=== PATIENT | male | born 1990 | race Hispanic/Latino ===

== ENCOUNTER 2024-04-07 13:27 | Emergency (ER) | payer OTHER ==
[2024-04-07] MEDS ORDERED: ACETAMINOPHEN 500 MG TAB ONE (13:47)
[2024-04-07] MEDS ORDERED: KETOROLAC 30 MG/ML INJ ONE (13:47)
--- NOTE | 2024-04-07 13:52 | RAD REPORT ---
EXAM DESCRIPTION: RAD - Hand Right 3 View - 04/07/2024 1:43 pm CLINICAL HISTORY: thumb injury COMPARISON: <Comparisons> FINDINGS: Mildly comminuted fracture is present involving the base of the first metatarsal with mild displacement. Moderate soft tissue swelling is evident. No dislocation. Small ossific density fifth finger PIP joint likely chronic
--- NOTE | 2024-04-07 14:57 | EDPHYS ---
Physician Documentation [facility] Name: Isaiah Pemberton Age: 33 yrs Sex: Male : 1990 Arrival Date: 04/07/2024 Time: 13:27 Bed 9 Private MD: ED Physician José Luis Sanches HPI: 04/07 13:30 This 33 yrs old Male presents to ER via Unassigned with complaints of Hand Injury. ec2 13:30 Patient arrives today for evaluation of hand injury. States that he fell and injured ec2 his right hand. Complaining of thumb pain. Significant swelling.. Historical: - Allergies: 13:31 No Known Allergies; hb - Home Meds: 13:31 None [Active]; hb - PMHx: 13:31 None; hb - PSHx: 13:31 None; hb - Immunization history:: Adult Immunizations up to date. - Infectious Disease History:: Denies. - Social history:: Smoking status: Patient denies any tobacco usage or history of. ROS: 13:30 Constitutional: as per hpi ec2 Exam: 13:30 Constitutional: GEN: NAD Head: atraumatic Eyes: EOMI Ears: External ears are ec2 normal. CV: regular rate LUNGS: no respiratory distress ABD: non-distended SKIN: no evidence of rashes MSK: Right hand or thumb with significant swelling and overlying ecchymosis. Vital Signs: 13:28 BP 124 / 74; Pulse 88; Resp 16; Temp 98.3; Pulse Ox 100% ; Weight 83.91 kg; Height 5 hb ft. 9 in. ; Pain 10/10; 13:45 BP 129 / 88; Pulse 88; Resp 19; Temp 98.1; Pulse Ox 99% on R/A; Weight 78.93 kg; Height ar6 5 ft. 8 in. ; 15:06 BP 132 / 88; Pulse 18; Resp 77; Pulse Ox 100% on R/A; ar6 15:20 BP 129 / 86; Pulse 82; Resp 19; Pulse Ox 100% on R/A; ar6 13:45 Body Mass Index 26.46 (78.93 kg, 172.72 cm) ar6 13:28 Pain Scale: Adult hb MDM: 13:28 Patient medically screened. ec2 13:30 Data reviewed: vital signs. ED course: Patient arrives today for evaluation of a right ec2 hand injury. Examination remarkable for hand findings as above. Will obtain radiograph. Differential includes dislocation, fracture, contusion. Will give the patient Toradol, Tylenol as well as an ice pack.. 14:13 ED course: Hand x-ray independently reviewed and interpreted by me, shows metatarsal ec2 fracture. Will place patient in splint. Will discharge and have the patient follow-up outpatient expectantly. . 04/07 13:29 Order name: Hand Right 3 View XRAY; Complete Time: 14:12 ec2 04/07 13:29 Order name: Ice pack; Complete Time: 14:00 ec2 Administered Medications: 13:45 Drug: Ketorolac IM 30 mg IM once Route: IM; Site: right deltoid; ar6 14:29 Follow up: Response: No adverse reaction ar6 13:45 Drug: Acetaminophen PO 1000 mg PO once Route: PO; ar6 14:29 Follow up: Response: No adverse reaction ar6 Disposition Summary: 04/07/24 14:57 Discharge Ordered Condition: Stable ec2 Diagnosis - Nondisplaced fracture of shaft of first metacarpal bone, right hand, initial ec2 encounter for closed fracture Followup: ec2 - With: Phu Molina MD - When: - Reason: Recheck today's complaints Discharge Instructions: - Discharge Summary Sheet ec2 - Metacarpal Fracture, [id number] ec2 Forms: - Medication Reconciliation Form ec2 - Antibiotic Education ec2 - Prescription Opioid Use ec2 - Patient Portal Instructions ec2 - Leadership Thank You Letter ec2 Signatures: Dispatcher [employer] Carol Cherry RN RN hb Corral, Edwin, MD MD ec2 Tamara Hamilton RN RN ar6
--- NOTE | 2024-04-07 14:57 | ER ---
Nurse's Notes [facility] Name: Isaiah Pemberton Age: 33 yrs Sex: Male : 1990 Arrival Date: 04/07/2024 Time: 13:27 Bed 9 Private MD: Diagnosis: Nondisplaced fracture of shaft of first metacarpal bone, right hand, initial encounter for closed fracture Presentation: 04/07 13:28 Chief complaint: Right hand pain, swelling, and redness after fall from bunk bed last hb night. Coronavirus screen: At this time, the client does not indicate any symptoms associated with coronavirus-19. Ebola Screen: No symptoms or risks identified at this time. Initial Sepsis Screen: Does the patient meet any 2 criteria? No. Patient's initial sepsis screen is negative. Does the patient have a suspected source of infection? No. Patient's initial sepsis screen is negative. Risk Assessment: Do you want to hurt yourself or someone else? Patient reports no desire to harm self or others. Onset of symptoms was April 06, 2024. 13:28 Method Of Arrival: Law Enforcement: [place] [employer] hb 13:28 Acuity: LOGAN 3 hb Triage Assessment: 13:31 General: Appears in no apparent distress. Behavior is calm, cooperative. Pain: Pain hb currently is 10 out of 10 on a pain scale. Neuro: Level of Consciousness is awake, alert, obeys commands, Oriented to person, place, time, situation. Cardiovascular: Patient's skin is warm and dry. Respiratory: Respiratory effort is even, unlabored, Respiratory pattern is regular, symmetrical. Musculoskeletal: swelling and bruising noted to right hand Reports pain in right hand. Historical: - Allergies: 13:31 No Known Allergies; hb - Home Meds: 13:31 None [Active]; hb - PMHx: 13:31 None; hb - PSHx: 13:31 None; hb - Immunization history:: Adult Immunizations up to date. - Infectious Disease History:: Denies. - Social history:: Smoking status: Patient denies any tobacco usage or history of. Screenin:45 [facility] ED Fall Risk Assessment (Adult) History of falling in the last 3 months, ar6 including since admission No falls in past 3 months (0 pts) Confusion or Disorientation No (0 pts) Intoxicated or Sedated No (0 pts) Impaired Gait No (0 pts) Mobility Assist Device Used No (0 pt) Altered Elimination No (0 pt) Score/Fall Risk Level 0 - 2 = Low Risk Oriented to surroundings, Maintained a safe environment, Educated pt \T\ family on fall prevention, incl call for assistance when getting out of bed, Hourly rounding (assess needs \T\ fall precautionary measures) done. Abuse screen: Denies threats or abuse. Denies injuries from another. Nutritional screening: No deficits noted. Tuberculosis screening: No symptoms or risk factors identified. Assessment: 13:45 General: Appears in no apparent distress. uncomfortable, Behavior is calm, cooperative, ar6 appropriate for age, guards at bedside x3. Pain: Complains of pain in right hand Pain does not radiate. Pain currently is 8 out of 10 on a pain scale. Neuro: Level of Consciousness is awake, alert, obeys commands, Oriented to person, place, time, situation. Cardiovascular: Capillary refill < 3 seconds. Respiratory: Airway is patent. GI: Abdomen is flat, non-distended. : No signs and/or symptoms were reported regarding the genitourinary system. EENT: No signs and/or symptoms were reported regarding the EENT system. Derm: Skin is intact, is healthy with good turgor, right hand swelling. Musculoskeletal: No signs and/or symptoms reported regarding the musculoskeletal system. 15:05 Reassessment: pending d/c for splint. ar6 Vital Signs: 13:28 BP 124 / 74; Pulse 88; Resp 16; Temp 98.3; Pulse Ox 100% ; Weight 83.91 kg; Height 5 hb ft. 9 in. ; Pain 10/10; 13:45 BP 129 / 88; Pulse 88; Resp 19; Temp 98.1; Pulse Ox 99% on R/A; Weight 78.93 kg; Height ar6 5 ft. 8 in. ; 15:06 BP 132 / 88; Pulse 18; Resp 77; Pulse Ox 100% on R/A; ar6 15:20 BP 129 / 86; Pulse 82; Resp 19; Pulse Ox 100% on R/A; ar6 13:45 Body Mass Index 26.46 (78.93 kg, 172.72 cm) ar6 13:28 Pain Scale: Adult hb ED Course: 13:28 Patient arrived in ED. hb 13:28 José Luis Sanches MD is Attending Physician. ec2 13:30 Triage completed. hb 13:32 Arm band placed on. hb 13:45 Hand Right 3 View XRAY In Process Unspecified. EDMS 13:45 No apparent distress. Awaiting for x-ray. ar6 13:45 Patient has correct armband on for positive identification. Bed in low position. Call ar6 light in reach. Side rails up X 1. Provided Education on: medications. Pulse ox on. NIBP on. Noise minimized. Visitors limited. Warm blanket given. Head of bed. 13:59 Tamara Hamilton, RN is Primary Nurse. ar6 14:57 Phu Molina MD is Referral Physician. ec2 15:15 Assisted provider with: thumb splic splint. ar6 15:22 Patient did not have IV access during this emergency room visit. ar6 Administered Medications: 13:45 Drug: Ketorolac IM 30 mg IM once Route: IM; Site: right deltoid; ar6 14:29 Follow up: Response: No adverse reaction ar6 13:45 Drug: Acetaminophen PO 1000 mg PO once Route: PO; ar6 14:29 Follow up: Response: No adverse reaction ar6 Medication: 15:23 VIS not applicable for this client. ar6 Outcome: 14:57 Discharge ordered by . ec2 15:23 Discharged to Law Enforcement ar6 15:23 Discharged to [facility] 15:23 Condition: good 15:23 Condition: good 15:23 Discharge instructions given to patient, [facility] Instructed on discharge instructions, follow up and referral plans. Demonstrated understanding of instructions, follow-up care, 15:24 Patient left the ED. ar6 Signatures: Dispatcher [employer] EDCarol Medina RN RN José Luis Hines MD MD ec2 Tamara Hamilton RN RN ar6
[2024-04-07 15:30] VITALS: TEMP 98.1
[2024-04-07 15:31] VITALS: O2SAT 100
[2024-04-07 15:32] VITALS: BP 129/86
== END 2024-04-07 15:24 | disposition home or self-care (01) ==
LOC: ER 13:27
PROC: 2W3EX1Z Immobilization of Right Hand using Splint (ICD-10-PCS; principal; 2024-04-07)
DX: S62.244A Nondisplaced fracture of shaft of first metacarpal bone, right hand, initial encounter for closed fracture (principal); W18.30XA Fall on same level, unspecified, initial encounter
CPT/HCPCS: 96372; 99284